=== PATIENT | female | born 1975 | race Hispanic/Latino ===

== ENCOUNTER 2017-11-07 22:40 | Emergency (ER) | payer BC, SELFPAY ==
--- NOTE | 2017-11-07 23:23 | RAD ---
PORTABLE CHEST 11/07/17 PROVIDED CLINICAL HISTORY: Chest tightness. FINDINGS: Comparison 08/29/16. The cardiac and mediastinal silhouette is within normal limits. The lungs appear clear. No pleural fl uid or pneumothorax apparent. IMPRESSION: No evidence for an acute cardiopulmonary process. POS: [facility]
[2017-11-08 00:05] LABS: #Eosinphils 0.1 thou/uL (0.0-0.7); #Lymphocytes 1.8 thou/uL (1.20-3.40); #Monocytes 0.2 thou/uL (0.11-0.59); #Neutrophils 2.1 thou/uL (1.40-6.50); %Basophils 0.8 % (0.0-1.0); %Eosinophils 1.4 % (0.0-10.0); %Lymphocytes 43.5 % (21.0-51.0); %Monocytes 3.7 % (0.0-10.0); %Neutrophils 50.6 % (42.0-75.0); Hemoglobin 13.8 g/dL (12.0-16.0); Mean Corpuscular HGB CONC 38.1 g/dL (32.0-36.0); Mean Corpuscular Hemoglobin 32.4 pg (27.0-31.0); Mean Corpuscular Volume 84.9 fl (81.0-99.0); Mean Platelet Volume 10.3 fL (7.4-10.4); Platelet Count 132 thou/uL (130-400); RBC Distribution Width 12.7 % (11.5-14.5); Red Blood Cell (RBC) Count 4.28 mill/uL (4.20-5.40); White Blood Cell (WBC) Count 4.2 thou/uL (4.8-10.8)
[2017-11-08 00:26] LABS: CKMB 0.8 ng/mL (0-6.6); Troponin I Less than 0.010 ng/mL (< 0.028)
[2017-11-08 00:44] LABS: Chloride 95 mmol/L (98-107); Potassium 4.2 mmol/L (3.5-5.1); Sodium 127 mmol/L (136-145)
[2017-11-08 00:54] LABS: Anion Gap 17 mmol/L (10-20); Carbon Dioxide 19 mmol/L (22-29)
[2017-11-08 00:55] LABS: BUN (Urea Nitrogen) 11 mg/dL (7.0-18.7); Calc. Creatinine Clearance 0 mL/min (70-130); Estimated GFR-MDRD 75
[2017-11-08 00:58] LABS: Calcium 8.8 mg/dL (7.8-10.44); Glucose 598 mg/dL (70-105)
[2017-11-08 00:59] LABS: ALT (SGPT) 30 U/L (8-55); AST (SGOT) 28 U/L (5-34); Albumin 4.1 g/dL (3.5-5.0); Alkaline Phosphatase 102 U/L (40-150); Bilirubin, Total 0.6 mg/dL (0.2-1.2); CK (CPK) 48 U/L (29-168); Globulin 2.5 g/dL (2.4-3.5); Lipase 35 U/L (8-78); Phosphorus 4.3 mg/dL (2.3-4.7); Protein, Total 6.6 g/dL (6.0-8.3)
[2017-11-08 01:00] LABS: Magnesium 2.2 mg/dL (1.6-2.6)
[2017-11-08] MEDS ORDERED: Potassium Chloride 20 MEQ TAB ONE (01:53)
[2017-11-08] MEDS ORDERED: Insulin Regular 300 UNITS/3 ML VIAL ONE (01:53)
[2017-11-08 02:18] LABS: Base Excess-Venous -2.4 mmol/L (-30.0-30.0); Bicarbonate (HCO3v) 22.6 mmol/L (1.0-85.0); CO2 Tension (PvCO2) 39.2 mmHg (41.0-51.0); Calcium, Ionized 1.05 mmol/L (1.12-1.32); Hemoglobin - Calc 12.8 g/dL (12.0-18.0); O2 Tension (PvO2) 76.1 mmHg (35.0-45.0); Potassium 3.4 mmol/L (3.4-4.7); T. Carbon Dioxide 23.8 mmol/L (1.0-85.0); vO2 Saturation-calc 94.7 % (0.0-100.0)
--- NOTE | 2017-11-09 15:15 | EKG ---
Test Reason : Blood Pressure : / mmHG Vent. Rate : 091 BPM Atrial Rate : 091 BPM P-R Int : 164 ms QRS Dur : 092 ms QT Int : 382 ms P-R-T Axes : 009 003 009 degrees QTc Int : 469 ms Normal sinus rhythm Normal ECG Confirmed by MARIBELL ROMANO, MARI ([id number]), social media editor DEVAN SMITH ([id number]) on 11/09/2017 3:15:05 PM Referred By: Confirmed By:MARI REYNA MD
== END 2017-11-08 03:20 | disposition home or self-care (01) ==
LOC: ERS 22:40
DX: E78.2 Mixed hyperlipidemia (principal); I10 Essential (primary) hypertension; F41.9 Anxiety disorder, unspecified; F32.9 Major depressive disorder, single episode, unspecified; Z79.4 Long term (current) use of insulin
CPT/HCPCS: 36415; 36416; 71045; 80053; 82010; 82330; 82435; 82553; 82803; 83690; 83735; 83880; 84100; 84132; 84295; 84484; 85014; 85025; 93005; 96361; 96374; J1815

== ENCOUNTER 2020-11-12 13:11 | Emergency (ER) | payer OTHER | END 2020-11-12 14:22 | disposition home or self-care (01) | LOC: ERS 13:11 | DX: R07.81 Pleurodynia (principal); E78.5 Hyperlipidemia, unspecified; E78.00 Pure hypercholesterolemia, unspecified; E78.1 Pure hyperglyceridemia; I10 Essential (primary) hypertension; E11.9 Type 2 diabetes mellitus without complications; Z79.4 Long term (current) use of insulin; V89.2XXA Person injured in unspecified motor-vehicle accident, traffic, initial encounter ==